=== PATIENT | female | born 1970 | race African-American/Black ===

== ENCOUNTER 2020-12-31 10:55 | Inpatient (IN) | payer OTHER ==
[2020-12-31 11:43] VITALS: BMI 28.7
[2020-12-31] MEDS ORDERED: ACETAMINOPHEN 325 MG TABLET (FP) PO PRN ×2 (12:13)
[2020-12-31] MEDS ORDERED: BISMUTH SUBSALICYLATE 524 MG/30 ML PO PRN (12:13)
[2020-12-31] MEDS ORDERED: MAG HYDROX/AL HYDROX/SIMETH 30 ML UNIT-DOSE CUP PO PRN (12:13)
[2020-12-31] MEDS ORDERED: NICOTINE 10 MG CARTRIDGE (INHALER) IH PRN (12:13)
[2020-12-31] MEDS ORDERED: MAGNESIUM HYDROX 2400MG/30ML ORAL SUSPENSION 30 ML CUP PO PRN (12:13)
[2020-12-31] MEDS ORDERED: MAGNESIUM CITRATE 300 ML BOTTLE PO PRN (12:13)
[2020-12-31] MEDS ORDERED: MENTHOL/PHENOL 1 EACH UD MM PRN (12:13)
[2020-12-31] MEDS ORDERED: ONDANSETRON *ODT* 4 MG TABLET SL PRN (12:13)
[2020-12-31] MEDS ORDERED: IBUPROFEN 400 MG TABLET (FP) PO PRN (12:13)
[2020-12-31] MEDS ORDERED: diazePAM 5 MG TABLET ONE (13:09)
[2020-12-31] MEDS: diazePAM 5 MG TABLET PO PRN (13:11)
[2020-12-31] MEDS: hydrOXYzine PAMOATE 25 MG CAPSULE (FP) PO SCH ×3 (15:38→22:30)
[2020-12-31 17:38] LABS: HEMATOCRIT 41.7 % (32.4-45.2); HEMOGLOBIN 14.6 GM/dL (10.7-15.3); MCH 33.2 pg (25.7-33.7); MCHC 35.1 g/dl (32.0-36.0); MEAN CELL VOLUME 94.6 fl (80-96); MEAN PLT VOLUME 7.5 fl (7.5-11.1); PLATELET COUNT 357 10^3/uL (134-434); RBC 4.41 M/mm3 (3.60-5.2); RDW 14.1 % (11.6-15.6); WHITE BLOOD COUNT 9.3 K/mm3 (4.0-10.0)
[2020-12-31 17:42] LABS: CALCIUM 8.8 mg/dL (8.5-10.1)
[2020-12-31 17:43] LABS: ALBUMIN 3.3 g/dl (3.4-5.0)
[2020-12-31 17:47] LABS: CREATININE 0.6 mg/dL (0.55-1.3)
[2020-12-31 17:48] LABS: BILIRUBIN,TOTAL 0.4 mg/dL (0.2-1); TOT PROT 6.7 g/dl (6.4-8.2)
[2020-12-31] MEDS: diazePAM 5 MG TABLET PO SCH ×3 (17:54→22:30)
[2020-12-31] MEDS: NICOTINE 7 MG/24 HOURS TOPICAL PATCH TD SCH (18:35)
[2020-12-31] MEDS: PRENATAL VITAMINS W/ FOLIC ACID TABLET (FP) PO SCH (18:36)
[2020-12-31] MEDS ORDERED: MELATONIN 5 MG TABLETS PO SCH (22:00)
[2020-12-31] MEDS: SUVOREXANT 10 MG TABLET PO PRN (22:29)
[2020-12-31] MEDS: METHOCARBAMOL 500 MG TABLET PO PRN (22:30)
[2020-12-31] MEDS: THIAMINE HCL 100 MG TABLET (FP) PO SCH (22:46)
[2021-01-01] MEDS: hydrOXYzine PAMOATE 25 MG CAPSULE (FP) PO SCH ×3 (05:46→13:31)
[2021-01-01] MEDS: diazePAM 5 MG TABLET PO SCH ×4 (05:46→22:21)
[2021-01-01] MEDS: amLODIPine BESYLATE 10 MG TABLET (FP) PO SCH (10:29)
[2021-01-01] MEDS: SERTRALINE HCL 50 MG TABLET (FP) PO SCH (10:29)
[2021-01-01] MEDS: NICOTINE 7 MG/24 HOURS TOPICAL PATCH TD SCH (10:30)
[2021-01-01] MEDS: PRENATAL VITAMINS W/ FOLIC ACID TABLET (FP) PO SCH (10:30)
[2021-01-01] MEDS: SUVOREXANT 10 MG TABLET PO PRN (22:20)
[2021-01-01] MEDS: THIAMINE HCL 100 MG TABLET (FP) PO SCH (22:21)
[2021-01-02] MEDS: diazePAM 5 MG TABLET PO SCH ×3 (05:27→22:08)
[2021-01-02] MEDS: SERTRALINE HCL 50 MG TABLET (FP) PO SCH (10:25)
[2021-01-02] MEDS: diazePAM 5 MG TABLET PO PRN (10:25)
[2021-01-02] MEDS: amLODIPine BESYLATE 10 MG TABLET (FP) PO SCH (10:25)
[2021-01-02] MEDS: PRENATAL VITAMINS W/ FOLIC ACID TABLET (FP) PO SCH (10:25)
[2021-01-02] MEDS: NICOTINE 7 MG/24 HOURS TOPICAL PATCH TD SCH (11:08)
[2021-01-02] MEDS: METHOCARBAMOL 500 MG TABLET PO PRN (22:08)
[2021-01-02] MEDS: THIAMINE HCL 100 MG TABLET (FP) PO SCH (22:08)
[2021-01-02] MEDS: SUVOREXANT 10 MG TABLET PO PRN (22:08)
[2021-01-02] MEDS: hydrOXYzine PAMOATE 25 MG CAPSULE (FP) PO PRN (22:08)
[2021-01-03] MEDS: diazePAM 5 MG TABLET PO SCH ×2 (06:14→17:45)
[2021-01-03] MEDS: PRENATAL VITAMINS W/ FOLIC ACID TABLET (FP) PO SCH (10:29)
[2021-01-03] MEDS: SERTRALINE HCL 50 MG TABLET (FP) PO SCH (10:29)
[2021-01-03] MEDS: amLODIPine BESYLATE 10 MG TABLET (FP) PO SCH (10:30)
[2021-01-03] MEDS: NICOTINE 7 MG/24 HOURS TOPICAL PATCH TD SCH (10:53)
[2021-01-03] MEDS: SUVOREXANT 10 MG TABLET PO PRN (21:31)
[2021-01-03] MEDS: METHOCARBAMOL 500 MG TABLET PO PRN (21:34)
[2021-01-03] MEDS: hydrOXYzine PAMOATE 25 MG CAPSULE (FP) PO PRN (21:34)
[2021-01-03] MEDS: THIAMINE HCL 100 MG TABLET (FP) PO SCH (21:34)
[2021-01-04] MEDS ORDERED: diazePAM 5 MG TABLET PO ONE (06:00)
[2021-01-04 06:13] VITALS: TEMP 97.5
[2021-01-04 10:11] VITALS: BP 113/86; PULSE 64
[2021-01-04] MEDS: amLODIPine BESYLATE 10 MG TABLET (FP) PO SCH (10:29)
[2021-01-04] MEDS: SERTRALINE HCL 50 MG TABLET (FP) PO SCH (10:29)
[2021-01-04] MEDS: PRENATAL VITAMINS W/ FOLIC ACID TABLET (FP) PO SCH (10:29)
[2021-01-04] MEDS: NICOTINE 7 MG/24 HOURS TOPICAL PATCH TD SCH (10:30)
== END 2021-01-04 11:46 | disposition home or self-care (01) | DRG 775 ==
LOC: YASAS 10:55 → Y3N 12:20
PROVIDERS: ADMIT Allergy & Immunology; ATTEND Allergy & Immunology
PROC: HZ2ZZZZ Detoxification Services for Substance Abuse Treatment (ICD-10-PCS; principal; 2020-12-31)
DX: F10.230 Alcohol dependence with withdrawal, uncomplicated (principal); F10.282 Alcohol dependence with alcohol-induced sleep disorder; F10.24 Alcohol dependence with alcohol-induced mood disorder; F17.210 Nicotine dependence, cigarettes, uncomplicated; F32.9 Major depressive disorder, single episode, unspecified; I10 Essential (primary) hypertension; Z56.0 Unemployment, unspecified
CPT/HCPCS: 36415; 71046-TC-FY; 80053; 85027; 86780; 93005; 93010; C9803; U0003; U0005